=== PATIENT | female | born 1965 | race Caucasian/White ===

== ENCOUNTER 2017-05-15 12:26 | Inpatient (IN) | payer MEDICAID, OTHER ==
[~2017-05-15] VITALS: Ht 152.4 cm; Wt 78.3 kg
[2017-05-15] MEDS ORDERED: LISI-662 PO (12:40)
[2017-05-15] MEDS ORDERED: HYDR25TA PO (12:40)
[2017-05-15] MEDS ORDERED: METF500T4 PO (12:40)
[2017-05-15 13:48] LABS: BASOPHILS # (AUTO) 0.05 K/uL (0.00-0.20); EOSINOPHILS # (AUTO) 0.02 K/uL (0.00-0.70); EOSINOPHILS % (AUTO) 0.35 % (1.0-6.0); HEMATOCRIT 44.8 % (36-46); HEMOGLOBIN 14.4 g/dL (12.0-16.0); LYMPHOCYTES # (AUTO) 1.7 K/uL (1.0-4.8); LYMPHOCYTES % (AUTO) 29.9 % (22.0-44.0); MEAN CORPUSCULAR HEMOGLOBIN 27.4 pg (26.0-34.0); MEAN CORPUSCULAR HGB CONC 32.2 G/dL (31.0-37.0); MEAN CORPUSCULAR VOLUME 85 fL (80-100); MONOCYTES # (AUTO) 0.4 K/uL (0.1-1.0); MONOCYTES % (AUTO) 7.3 % (2.0-9.0); NEUTROPHILS # (AUTO) 3.4 K/uL (1.8-7.7); NEUTROPHILS % (AUTO) 61.5 % (40.0-70.0); PLATELET COUNT (AUTO) 256 K/uL (150-450); RED BLOOD CELL COUNT(AUTO) 5.27 MIL/uL (4.00-5.20); RED CELL DISTRIBUTION WIDTH 14.7 % (11.5-14.5); WHITE BLOOD COUNT (AUTO) 5.5 K/uL (4.5-11.0)
[2017-05-15 14:00] LABS: ANION GAP 6 mmol/L (8-16); CALCIUM, TOTAL 9.6 mg/dL (8.8-10.5); CARBON DIOXIDE 33 mmol/L (22-29); CHLORIDE 98 mmol/L (98-107); CREATININE 1.02 mg/dL (0.60-1.30); GLOMERULAR FILTR. RATE CALC 58 mL/min (>60); POTASSIUM 3.6 mmol/L (3.5-5.1); SODIUM SERUM 137 mmol/L (136-145); UREA NITROGEN, BLOOD 14 mg/dL (7-18)
[2017-05-15 14:05] LABS: ALANINE AMINOTRANSFERASE 26 U/L (12-78); ALBUMIN 4.2 g/dL (3.4-5.0); ASPARTATE AMINOTRANSFERASE 10 U/L (15-37); BILIRUBIN,TOTAL 0.4 mg/dL (0.1-1.0); TOTAL PROTEIN, SERUM 7.9 g/dL (6.4-8.2)
[2017-05-15] MEDS ORDERED: MAG HYDROX/AL HYDROX/SIMETH ES 30 ML SUSPENSION UDCUP PO PRN (14:45)
[2017-05-15] MEDS ORDERED: QUEtiapine FUMARATE 100 MG TABLET PO PRN (14:45)
[2017-05-15] MEDS ORDERED: GuaiFENesin/D-METHORPHAN [SUGAR-FREE] 200-20MG/10 ML SYRUP UDCUP PO PRN (14:45)
[2017-05-15] MEDS ORDERED: HydrOXYzine PAMOATE 50 MG CAPSULE PO PRN (14:45)
[2017-05-15] MEDS ORDERED: ACETAMINOPHEN 325 MG TABLET PO PRN ×2 (14:45→17:15)
[2017-05-15] MEDS ORDERED: MAGNESIUM HYDROXIDE SUSPENSION 30 ML UDCUP PO PRN (14:45)
[2017-05-15] MEDS ORDERED: PROMETHAZINE HCL 25 MG TABLET PO PRN (14:45)
[2017-05-15] MEDS ORDERED: TUBERCULIN, PURIFIED PROTEIN DERIVATIVE 5 TU/0.1 ML SYG ID ONE (14:45)
[2017-05-15] MEDS ORDERED: LORazepam 2 MG TABLET PO PRN (14:45)
[2017-05-15] MEDS ORDERED: ZOLPIDEM TARTRATE 10 MG TABLET PO PRN (14:45)
[2017-05-15] MEDS ORDERED: LOPERAMIDE HCL 2 MG CAPSULE PO PRN (14:45)
[2017-05-15 15:12] LABS: GLUCOSE,POINT OF CARE 120 MG/DL (70-110)
[2017-05-15] MEDS: THIAMINE HCL 100 MG TABLET PO SCH (17:09)
[2017-05-15] MEDS ORDERED: IBUPROFEN 400 MG TABLET PO PRN (17:15)
[2017-05-15] MEDS ORDERED: INFLUENZA VIRUS VACCINE QVS 2017-18 (3YR+)/PF 60 MCG/0.5 ML SYRINGE IM ONE (17:45)
[2017-05-15] MEDS ORDERED: PNEUMOCOCCAL VACCINE POLYVALENT 0.5 ML VIAL [PPSV23] IM ONE (17:45)
[2017-05-15 20:36] VITALS: BP 101/61
[2017-05-15] MEDS ORDERED: QUEtiapine FUMARATE 200 MG TABLET PO SCH (21:00)
[2017-05-16 06:28] VITALS: BP 112/68
[2017-05-16] MEDS ORDERED: MetFORMIN HCL 500 MG TABLET PO SCH (07:00)
[2017-05-16] MEDS: MetFORMIN HCL 500 MG TABLET PO SCH (07:10)
[2017-05-16 07:23] LABS: GLUCOSE,POINT OF CARE 103 MG/DL (70-110)
[2017-05-16 08:22] LABS: BASOPHILS # (AUTO) 0.01 K/uL (0.00-0.20); BASOPHILS % (AUTO) 0.2 % (0.0-2.0); EOSINOPHILS # (AUTO) 0.04 K/uL (0.00-0.70); EOSINOPHILS % (AUTO) 0.65 % (1.0-6.0); HEMATOCRIT 44.6 % (36-46); HEMOGLOBIN 14.1 g/dL (12.0-16.0); LYMPHOCYTES # (AUTO) 2.2 K/uL (1.0-4.8); LYMPHOCYTES % (AUTO) 39.1 % (22.0-44.0); MEAN CORPUSCULAR HEMOGLOBIN 27.3 pg (26.0-34.0); MEAN CORPUSCULAR HGB CONC 31.6 G/dL (31.0-37.0); MEAN CORPUSCULAR VOLUME 86 fL (80-100); MONOCYTES # (AUTO) 0.4 K/uL (0.1-1.0); MONOCYTES % (AUTO) 7.6 % (2.0-9.0); NEUTROPHILS # (AUTO) 2.9 K/uL (1.8-7.7); NEUTROPHILS % (AUTO) 52.4 % (40.0-70.0); PLATELET COUNT (AUTO) 230 K/uL (150-450); RED BLOOD CELL COUNT(AUTO) 5.16 MIL/uL (4.00-5.20); RED CELL DISTRIBUTION WIDTH 14.8 % (11.5-14.5); WHITE BLOOD COUNT (AUTO) 5.5 K/uL (4.5-11.0)
[2017-05-16 08:48] LABS: HEMOGLOBIN A1C 6.4 % (4.5-6.2)
[2017-05-16] MEDS: HYDROCHLOROTHIAZIDE 25 MG TABLET PO SCH (09:00)
[2017-05-16] MEDS ORDERED: LISINOPRIL 20 MG TABLET PO SCH (09:00)
[2017-05-16] MEDS ORDERED: HYDROCHLOROTHIAZIDE 25 MG TABLET PO SCH (09:00)
[2017-05-16] MEDS: LISINOPRIL 20 MG TABLET PO SCH (09:00)
[2017-05-16 09:12] VITALS: BP 90/68
[2017-05-16 09:34] LABS: BILIRUBIN,TOTAL 0.4 mg/dL (0.1-1.0); CALCIUM, TOTAL 9.2 mg/dL (8.8-10.5); CHOL/HDL RATIO 4.1 (3.9-5.7); POTASSIUM 3.8 mmol/L (3.5-5.1); THYROID STIMULATING HORMONE 1.8 uIU/mL (0.36-3.74); TOTAL PROTEIN, SERUM 7.5 g/dL (6.4-8.2)
[2017-05-16] MEDS: FLUoxetine HCL 20 MG CAPSULE PO SCH (09:47)
[2017-05-16] MEDS: FOLIC ACID 1 MG TABLET PO SCH (09:47)
[2017-05-16] MEDS: MULTIVITAMINS WITH MINERALS, THERAPEUTIC TABLET PO SCH (09:47)
[2017-05-16] MEDS: OMEPRAZOLE 20 MG CAPSULE PO SCH (09:48)
[2017-05-16] MEDS: THIAMINE HCL 100 MG TABLET PO SCH ×2 (09:48→16:46)
[2017-05-16 16:21] VITALS: BP 115/75
[2017-05-16] MEDS: QUEtiapine FUMARATE 200 MG TABLET PO SCH (20:34)
[2017-05-17 04:34] VITALS: BP 107/67
[2017-05-17] MEDS: MetFORMIN HCL 500 MG TABLET PO SCH (06:34)
[2017-05-17 06:52] LABS: GLUCOSE,POINT OF CARE 105 MG/DL (70-110)
[2017-05-17 08:57] VITALS: BP 109/78
[2017-05-17] MEDS: MULTIVITAMINS WITH MINERALS, THERAPEUTIC TABLET PO SCH (09:34)
[2017-05-17] MEDS: FLUoxetine HCL 20 MG CAPSULE PO SCH (09:34)
[2017-05-17] MEDS: HYDROCHLOROTHIAZIDE 25 MG TABLET PO SCH (09:34)
[2017-05-17] MEDS: LISINOPRIL 20 MG TABLET PO SCH (09:34)
[2017-05-17] MEDS: OMEPRAZOLE 20 MG CAPSULE PO SCH (09:34)
[2017-05-17] MEDS: FOLIC ACID 1 MG TABLET PO SCH (09:34)
[2017-05-17] MEDS: THIAMINE HCL 100 MG TABLET PO SCH ×2 (09:34→17:09)
[2017-05-17 16:54] VITALS: BP 101/73
[2017-05-17] MEDS ORDERED: FLUO-191 PO (18:07)
[2017-05-17] MEDS ORDERED: QUET200T29 PO (18:07)
[2017-05-17] MEDS: QUEtiapine FUMARATE 200 MG TABLET PO SCH (20:22)
[2017-05-18 00:14] VITALS: BP 106/64
[2017-05-18] MEDS: MetFORMIN HCL 500 MG TABLET PO SCH (07:04)
[2017-05-18] MEDS: FOLIC ACID 1 MG TABLET PO SCH (08:42)
[2017-05-18] MEDS: LISINOPRIL 20 MG TABLET PO SCH (08:42)
[2017-05-18] MEDS: OMEPRAZOLE 20 MG CAPSULE PO SCH (08:42)
[2017-05-18] MEDS: HYDROCHLOROTHIAZIDE 25 MG TABLET PO SCH (08:42)
[2017-05-18] MEDS: MULTIVITAMINS WITH MINERALS, THERAPEUTIC TABLET PO SCH (08:42)
[2017-05-18] MEDS: FLUoxetine HCL 20 MG CAPSULE PO SCH (08:42)
[2017-05-18] MEDS: THIAMINE HCL 100 MG TABLET PO SCH (08:42)
[2017-05-18] MEDS ORDERED: MV-M1TAB2 PO (08:48)
[2017-05-18] MEDS ORDERED: FOLI1 PO (08:49)
[2017-05-18] MEDS ORDERED: QUET25TA PO (08:52)
[2017-05-18] MEDS ORDERED: OMEP20 PO (08:52)
[2017-05-18] MEDS ORDERED: FLUO-191 PO (08:52)
[2017-05-18] MEDS ORDERED: THIA100 PO (08:52)
[2017-05-18 11:47] LABS: GLUCOSE,POINT OF CARE 103 MG/DL (70-110)
== END 2017-05-18 11:10 | disposition home or self-care (01) | DRG 751 ==
LOC: EMS 12:28 → B2S 14:58
PROVIDERS: ADMIT Psychiatry & Neurology Psychiatry; ATTEND Psychiatry & Neurology Psychiatry
DX: F32.3 Major depressive disorder, single episode, severe with psychotic features (principal); E66.01 Morbid (severe) obesity due to excess calories; R45.851 Suicidal ideations; I10 Essential (primary) hypertension; E11.9 Type 2 diabetes mellitus without complications; E78.5 Hyperlipidemia, unspecified; F29 Unspecified psychosis not due to a substance or known physiological condition; K21.9 Gastro-esophageal reflux disease without esophagitis; Z68.33 Body mass index [BMI] 33.0-33.9, adult; Z28.21 Immunization not carried out because of patient refusal; Z79.899 Other long term (current) drug therapy; Z91.19 Patient's noncompliance with other medical treatment and regimen
CPT/HCPCS: 82962; 83036; 84439; 84443; 86592; 86780; 99285; G0480